=== PATIENT | female | born 2000 | race Caucasian/White ===

== ENCOUNTER 2024-11-08 15:48 | Outpatient (CLI) | payer OTHER, SELFPAY ==
--- NOTE | ~2024-11-08 | CT_ITS ---
EXAMINATION: CT brain wo con DATE: 11/08/2024 16:08 INDICATION: Headache post single episode with head injury TECHNIQUE: Computed tomography (CT) of the head was performed without intravenous contrast. Sagittal and coronal reconstructions were performed. The mA was adjusted according to patient size. Iterative reconstruction technique was employed. The dose-length product was 605.33 mGy-cm. COMPARISON: None FINDINGS: No fracture. No acute intracranial hemorrhage, acute infarction or abnormal extra axial fluid collect ion. Ventricles are normal and symmetric. No mass/mass effect. The orbits, paranasal sinuses and mast oid air cells are normal. IMPRESSION: 1. Normal head CT. Reviewed, dictated and finalized at location A. [employer] IMPRESSION: 1. Normal head CT.
--- OUTSIDE RECORDS SUMMARY | 2024-11-08 16:00 | XMS_ITS | Referral Summary ---
Author Organization [facility] [address] Address [address] [place] [address] Care Team Providers Care Hot Press Operator Name Role Phone Raul Smith MD Primary Care Provider Allergies Active Allergy Reactions Criticality Noted Date Comments Penicillins Hives Medium 04/11/2023 Medications FLUoxetine (PROzac) 40 mg capsule Take 1 capsule (40 mg total) by mouth daily Active azithromycin (ZITHROMAX) 250 mg tablet Take 2 tabs (500 mg) by mouth today, than 1 tab (250 mg) daily for 4 days. 6 tablet 3 Active Additional Information Patient not taking.Reported on 10/19/2023 benzonatate (TESSALON) 100 mg capsuleIndicati ons:Cough Take 1 capsule (100 mg total) by mouth 3 (three) times a day as needed for cough 42 capsule 4 Active Active Problems No known active problems Immunizations Name Administration Dates Next Due Influenza, Quadrivalent, Spl it, Preservative Free, Intramuscular 08/01/2020 Influenza, Trivalent, IM (MDV) 06/14/2021 Social History Tobacco Use Types Packs/Day Years Used Date Smoking Tobacco: Never Assessed Comments Unknown Sex and Gender Information Value Date Recorded Sex Assigned at Not on file Legal Sex Female 11:40 AM CDT Gender Identity Not on file Sexual Orientation Not on file Last Filed Vital Signs Vital Sign Reading Time Taken Comments Blood Pressure 136/82 07/28/2024 12:33 PM CDT Pulse 90 07/28/2024 12:33 PM CDT Temperature 37.1 ??C (98.8 ??F) 07/28/2024 1 2:33 PM CDT Respiratory Rate 20 07/28/2024 12:3 3 PM CDT Oxygen Saturation 98% 07/28/2024 12: 33 PM CDT Inhaled Oxygen Concentration - - Weight 94.2 kg (207 lb 11.2 oz) 024 12:33 PM CDT Height 165.1 cm (5' 5 ) 07/28/2024 12:3 3 PM CDT Body Mass Index 34.56 07/28/2024 12:33 PM CDT Plan of Treatment Not on file Insurance [facility] PLUS [facility] CHO[facility] PLUS Care Teams Hot Press Operator Relationship Specialty Start Date End Date Raul Smith MD PCP - General Family Medicine 04/11/23
--- OUTSIDE RECORDS SUMMARY | 2024-11-08 16:00 | XMS_ITS | Clinical Summary ---
Author Organization [facility] [address] Address [address] [place] [address] Care Team Providers Care Proprietary Trader Name Role Phone Raul Smith MD Primary [...] on file Sexual Orientation Not on file Obstetrics History Last Filed Vital Signs Vital Sign Reading [...] 07/28/2024 12:33 PM CDT Plan of Treatment Health Maintenance Due Date Last Done Comments Cervical Cancer Screening 2001 Depression Screening 2001 Hepatitis C Screening 2001 DTaP/Tdap/Td Vaccine (1 - Tdap) 2012 Varicella Vaccines (1 of 2 - 13+ 2-dose series) 2014 HPV Vaccines (1 - 3-dose series) 2016 Meningococcal B Vaccine (1 o f 2 - Patient Seeks Protection) 2017 Hepatitis B Screening 2019 Regular Well Visit/Exam 18-64 2019 Covid-19 Vaccine (4 - 2023-2 5 season) 2024 10/03/2021, 02/03/2021, 01/12/2021 Influenza Vaccine (#1) 2024 , 08/01/2020 Pneumococcal vaccine <65 Aged Out No longer eligible based on patient's age to complete this topic Insurance [facility] CHOICE PLUS [facility] CHOICE PLUS Care Teams Proprietary Trader Relationship Specialty Start Date End Date Raul Smith MD PCP - General Family Medicine 04/11/23
== END 2024-11-08 15:49 | disposition home or self-care (01) ==
LOC: ANHIMG 15:55
PROVIDERS: PCP Family Medicine; Visit Provider Nurse Practitioner Adult Health
DX: S06.9X9A Unspecified intracranial injury with loss of consciousness of unspecified duration, initial encounter (principal); X58.XXXA Exposure to other specified factors, initial encounter
CPT/HCPCS: 70450